=== PATIENT | female | born 1940 | race Caucasian/White ===

== ENCOUNTER → 2017-05-02 | Outpatient (CLI) | payer OTHER ==
--- NOTE | 2017-05-03 13:34 | MAMMOGRAPHY REPORT ---
BILATERAL DIGITAL SCREENING MAMMOGRAM WITH CAD: 05/02/2017 CLINICAL HISTORY: Routine screening. Patient has no complaints. TECHNIQUE: Current study was also evaluated with a Computer Aided Detection (CAD) system. Bilateral CC and MLO views were obtained. COMPARISON: No prior exams were available for comparison. BREAST COMPOSITION: There are scattered areas of fibroglandular density in both breasts. FINDINGS: There is a focal asymmetry in the right upper outer quadrant as well as an associated oval 10 mm mass, for which spot compression tomosynthesis views and possible breast ultrasound are recomm ended for further evaluation. Additionally, there are vague asymmetries within the left lateral yong st, which likely represent normal fibroglandular tissue although tomosynthesis images of the left gayla ast are recommended for further evaluation. The remainder of both breasts demonstrate no suspicious masses, calcifications, or areas of edi architect ural distortion. A few scattered lateral punctate benign-appearing calcifications are noted. IMPRESSION: ACR BI-RADS CATEGORY 0: INCOMPLETE EVALUATION: NEED ADDITIONAL IMAGING EVALUATION Bilateral breast asymmetries, for which additional imaging evaluation is recommended. The patient will be called to schedule an appointment. Approximately 10% of breast cancers are not detected with mammography. A negative mammographic report should not delay biopsy if a clinically suggestive mass is present. Deepika Neff M.D. ah/:05/02/2017 17:01:27 Guard Immigration: Maia BROWN(Flora)([place])([place]), [facility] letter sent: Addl Imaging 0 BI-RADS Code: ACR BI-RADS Category 0: Incomplete Evaluation: Need Additional Imaging Evaluation
== END | disposition home or self-care (01) ==
LOC: C.MAMM 14:23
PROVIDERS: ATTEND Family Medicine
DX: Z12.31 Encounter for screening mammogram for malignant neoplasm of breast (principal); R92.8 Other abnormal and inconclusive findings on diagnostic imaging of breast

== ENCOUNTER → 2017-05-15 | Outpatient (CLI) | payer OTHER ==
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
== END | disposition home or self-care (01) ==
LOC: C.MAMM 10:47
PROVIDERS: ATTEND Family Medicine
DX: N64.89 Other specified disorders of breast (principal); N63 Unspecified lump in breast; N60.01 Solitary cyst of right breast; Z98.890 Other specified postprocedural states

== ENCOUNTER → 2017-05-16 | Outpatient (CLI) | payer OTHER ==
--- NOTE | 2017-05-16 14:29 | Discharge Instructions ---
Discharge Instructions Procedure Procedure Date: May 16, 2017. Reason for visit: RIGHT MASSES x2. Discharge Discharge Date: May 16, 2017. Discharge Diagnosis: status post breast biopsy Instructions Activity Recommendations: Additional Limitations (see below) Return to School/Work: no limitations Recommended Home Diet: No Limitations Provider Instructions: ACTIVITY RECOMMENDATIONS: * No lifting, pushing, pulling or exercising the affected side for three days. RETURN TO SCHOOL/WORK: * You may return to work/school after the procedure, but do not perform any strenuous activities for 24 to 48 hours. MEDICATIONS: * Tylenol (two 325 mg) every four to six hours if needed for mild pain (if not allergic to Tylenol). DIET: * Resume previous diet. SPECIAL CARE INSTRUCTIONS: * Keep biopsy site dry for 24 hours. May shower after 24 hours, but do not soak (bathe) incision. * May remove Tegaderm (plastic patch) tomorrow AFTER showering. * Leave the steri-strips on for one week. Allow the steri-strips to fall off by themselves. If not off after one week, you may remove them. You may place a Bandaid crosswise over the strips, if desired. * Apply ice 10 minutes on and 10 minutes off as needed. * Wear a bra at bedtime to sleep more comfortably for 2-3 days. * Your referring physician should have the results after approximately 5 to 7 business days. * Call for unusual bleeding, fever, drainage, etc or if you have any questions call during normal business hours or after hours call Dr Neff, . FOLLOW UP VISIT: Follow-up with Referring Physician as scheduled. Allergies Coded Allergies: No Known Allergies (Unverified , 02/29/16) Rohini Belcher Recommendations: Call your doctor if: * Temperature above 101 degrees * Pain not relieved by pain medicine ordered * There is increased drainage or redness from any incision * You have any unanswered questions or concerns. Your Doctors Instructions noted above were prepared by provider Deepika Neff. Patient Signature Section: Patient Instructions Signature Page Ellen Lerner Patient (or Guardian) Signature/Date: I have read and understand the instructions given to me by my caregivers. Caregiver/RN/Doctor Signature/Date: The above-named patient and/or guardian has received patient instructions on this date. + Original Patient Signature Page (only) stays with chart. Please make copy for patient.
--- NOTE | 2017-05-16 15:39 | MAMMOGRAPHY REPORT ---
UNILATERAL RIGHT DIGITAL DIAGNOSTIC MAMMOGRAM TOMOSYNTHESIS: 05/16/2017 CLINICAL HISTORY: Status post right breast biopsies. TECHNIQUE: Breast tomosynthesis in addition to standard 2D mammography was performed. Postprocedura l right CC and ML tomosynthesis images including C views were obtained. COMPARISON: Comparison is made to exams dated: 05/16/2017 ultrasound biopsy, 05/15/2017 ultrasound, 05/02 mammogram, and 05/15/2017 mammogram - [facility]. BREAST COMPOSITION: There are scattered areas of fibroglandular density in the right breast. FINDINGS: A new ribbon-shaped biopsy marker clip is seen at the site of the biopsy of the textural d ifference in the right 11:30 breast, correlating with a mammographic asymmetry. A wing-shaped biopsy marker clip is seen at the site of the biopsied mass in the right 12:00 breast. No significant post biopsy hematoma is seen. IMPRESSION: POST PROCEDURE IMAGING FOR MARKER PLACEMENT New biopsy marker clips status post right breast biopsies. Pathology results are pending. Approximately 10% of breast cancers are not detected with mammography. A negative mammographic report should not delay biopsy if a clinically suggestive mass is present. Deepika Neff M.D. /:05/16/2017 14:42:29 Critical Care Transport Nurse: Radha Gregory, [facility] BI-RADS Code: Post Procedure Imaging For Marker Placement
--- NOTE | 2017-05-16 15:39 | MAMMOGRAPHY REPORT ---
THIS REPORT HAS BEEN AMENDED. ULTRASOUND GUIDED BIOPSY RIGHT BREAST: 05/16/2017 CLINICAL HISTORY: Hypoechoic textural difference in the right 11:30 breast on ultrasound, felt to cor relate with a focal asymmetry mammographically. PATIENT CONSENT: The procedure, risks and benefits were discussed with the patient and informed writt en consent was obtained. A timeout was performed immediately prior to the procedure. PROCEDURE DESCRIPTION: With ultrasound guidance, aseptic technique, and lidocaine as the local anesth etic (1% lidocaine to anesthetize the skin and 1% lidocaine with epinephrine to anesthetize the deepe r tissues), the hypoechoic textural difference in the right 11:30 breast (labelled "A") was sampled 3 times with a 14-gauge Achieve biopsy needle. Immediately thereafter, with ultrasound guidance, asep tic technique, and lidocaine as the local anesthetic, a metallic localizer clip was placed at the bio psy site. Direct pressure was applied to the site immediately post procedure and hemostasis was achi eved. Postprocedure unilateral mammograms were performed to confirm placement of the clip in the exp ected location of the breast mass. The patient tolerated the procedure without complication. She wa s given wound care instructions. The specimens were sent to pathology for analysis. COMPARISON: Comparison is made to exams dated: 05/15/2017 ultrasound, 05/15/2017 mammogram, and mammogram - [facility]. IMPRESSION: ULTRASOUND GUIDED BIOPSY Ultrasound-guided biopsy of the textural difference in the right 11:30 breast (labelled "A"), with cl ip placement. The patient will receive pathology results from her referring provider. Deepika Neff M.D. ah/:05/16/2017 14:31:07 Rail Express Clerk: Radha Gregory, [facility] AMENDMENT: 05/22/2017 Deepika Neff M.D. Pathology from right breast biopsies was reviewed on 05/22/2017. Pathology of the right 11:30 breast abnormality yielded fibrocystic changes. Pathology of the right 12:00 breast mass yielded fibroadeno ma. Findings are benign and concordant with the imaging findings. Recommend follow-up diagnostic to mosynthesis mammograms and possible ultrasound of the right breast in 6 months to confirm stability o f the findings.
--- NOTE | 2017-05-16 15:39 | MAMMOGRAPHY REPORT ---
ULTRASOUND GUIDED BIOPSY RIGHT BREAST: 05/16/2017 CLINICAL HISTORY: Right 12:00 breast mass. PATIENT CONSENT: The procedure, risks and benefits were discussed with the patient and informed writt en consent was obtained. A timeout was performed immediately prior to the procedure. PROCEDURE DESCRIPTION: With ultrasound guidance, aseptic technique, and lidocaine as the local anesth etic (1% lidocaine to anesthetize the skin and 1% lidocaine with epinephrine to anesthetize the deepe r tissues), the mass of concern in the right 12:00 breast (labeled "B") was sampled 3 times with a 14 -gauge Achieve biopsy needle. Immediately thereafter, with ultrasound guidance, aseptic technique, a nd lidocaine as the local anesthetic, a wing-shaped metallic localizer clip was placed centrally in t he mass. Direct pressure was applied to the site immediately post procedure and hemostasis was achie lukas. Postprocedure unilateral mammograms were performed to confirm placement of the clip in the expe cted location of the breast mass. The patient tolerated the procedure without complication. She was given wound care instructions. The specimens were sent to pathology for analysis. COMPARISON: Comparison is made to exams dated: 05/16/2017 ultrasound biopsy, 05/15/2017 ultrasound, 2016 mammogram, and 05/02/2017 mammogram - [facility]. IMPRESSION: ULTRASOUND GUIDED BIOPSY Ultrasound guided core needle biopsy of the right 12:00 breast mass (labeled "B"), with clip placemen t. The patient will receive pathology results from her referring provider. Deepika Neff M.D. ah/:05/16/2017 14:32:38 Prefitter: Radha Gregory, [facility]
== END | disposition home or self-care (01) ==
LOC: C.MAMM 13:43
PROVIDERS: ATTEND Family Medicine
DX: N63 Unspecified lump in breast (principal); D24.1 Benign neoplasm of right breast

== ENCOUNTER → 2017-11-14 | Outpatient (CLI) | payer OTHER ==
--- NOTE | 2017-11-14 15:05 | MAMMOGRAPHY REPORT ---
UNILATERAL RIGHT DIGITAL DIAGNOSTIC MAMMOGRAM TOMOSYNTHESIS WITH CAD: 11/14/2017 CLINICAL HISTORY: The patient presents for short interval follow-up after benign biopsies of the righ t breast. Pathology of the right 11:30 breast abnormality yielded fibrocystic changes, while patholog y of the right 12:00 breast mass yielded a fibroadenoma. The patient reports no lumps or other compl aints. TECHNIQUE: Breast tomosynthesis in addition to standard 2D mammography was performed. Current study was also evaluated with a Computer Aided Detection (CAD) system. Right CC and MLO 2D and tomosynthes is images were obtained. COMPARISON: Comparison is made to exams dated: 05/16/2017 ultrasound biopsy, 05/16/2017 mammogram, 017 ultrasound biopsy, 05/15/2017 ultrasound, 05/15/2017 mammogram, and 05/02/2017 mammogram - [facility]. BREAST COMPOSITION: There are scattered areas of fibroglandular density in the right breast. FINDINGS: Two biopsy clips are noted within the right upper outer quadrant and right 12:00 breast at the sites of prior benign right breast biopsies. Focal asymmetry in the right upper outer quadrant i s stable compared to the April 2017 exam; given the benign pathology on biopsy and given the stabili ty, the finding is considered benign. The remainder of the right breast is stable compared to the pr ior exams, without suspicious masses, calcifications, or areas of architectural distortion noted. Ar chitectural distortion in the right 12:00 breast is stable and compatible with postsurgical changes f rom prior benign excisional biopsy. IMPRESSION: ACR BI-RADS CATEGORY 2: BENIGN There is no mammographic evidence of malignancy in the right breast. Return to annual mammogram scree yoli schedule is recommended, due April 2018. The patient has been verbally notified of the results . Approximately 10% of breast cancers are not detected with mammography. A negative mammographic report should not delay biopsy if a clinically suggestive mass is present. Deepika Neff M.D. ah/:11/14/2017 10:58:34 Logistic Specialist: Radha BLANKENSHIP)(M), [facility] letter sent: Normal 1/2 BI-RADS Code: ACR BI-RADS Category 2: Benign
== END | disposition home or self-care (01) ==
LOC: C.MAMM 10:00
PROVIDERS: ATTEND Family Medicine
DX: N60.11 Diffuse cystic mastopathy of right breast (principal); D24.1 Benign neoplasm of right breast

== ENCOUNTER 2024-07-28 13:19 | Inpatient (IN) ==
--- NOTE | 2024-07-28 13:34 | Emergency Department Note ---
Impression & Plan Fracture of left tibial plateau, Fall ED Provider Note CHIEF COMPLAINT: Left knee pain HISTORY OF PRESENTING ILLNESS: This 84-year-old female patient presents to the emergency department with her for evaluation of left knee injury. The patient states that she slipped and fell while doing housework approximately 1 hour ago injuring the left knee. The patient states that she was on a step ladder cleaning the cabinets. When she went to step off the counter onto the step ladder again her left knee twisted and gave out on her. She then landed on her left side onto the floor. She states that she fell about 3 feet, but does not feel that she hit hard. She did not hit her head. No LOC. Denies neck or back pain. Denies chest pain, SOB, or rib pain. Denies abdominal pain, nausea, or vomiting. Denies pain of her arms or right leg. Only having pain to the left knee. She is unable to bear any weight on the left knee. She does not think that her knee went backwards, just twisted to the side. She is not on any blood thinners. She denies any pain or injury to any other areas. She rates her discomfort as 1/10. She has not taken anything for the symptoms yet. No previous injuries or surgeries to this knee. REVIEW OF SYSTEMS: See HPI for pertinent positives and pertinent negatives. ALLERGIES: NKDA MEDICATIONS: HCTZ and Lisinopril PAST MEDICAL HISTORY: HTN PHYSICAL EXAM: VITALS: Vitals are noted on the nurse's note and reviewed by myself. GENERAL: No acute distress, non-diaphoretic. SKIN: The skin was without obvious lacerations or abrasions. No obvious areas of bruising other than the anterior aspect of the left knee. Capillary reflex less than 2 seconds. HEAD: Normocephalic. No scalp tenderness or step-offs felt. EARS: Bilateral external auditory canals clear without tragus tenderness. Bilateral tympanic membranes pearly jackson without erythema or effusion. No mastoid tenderness bilaterally. No hemotympanum. No bunch sign. EYES: Pupils equal round and reactive to light and accommodation. Conjunctivae without injection, sclerae without icterus. Extraocular movements intact. No nystagmus. NOSE: Patent without discharge. No sinus tenderness. No septal hematoma or bleeding. FACE: No facial bone tenderness. Full range of motion of the jaw without tenderness. MOUTH: Mucous membranes moist. Pharynx without erythema or exudate. Uvula midline. Airway patent. Tongue does not deviate. NECK: Supple without nuchal rigidity. Cervical spine is nontender. Full range of motion of the neck without tenderness. HEART: Regular rate and rhythm without murmurs gallops or rubs. LUNGS: Clear to auscultation bilaterally without wheezes, rales or rhonchi. No retractions or accessory muscle use. CHEST: No chest wall tenderness. ABDOMEN: Positive bowel sounds x 4. Normal tympanic percussion. Soft, nontender, without masses or organomegaly. No guarding or rebound tenderness. MUSCULOSKELETAL: No tenderness of the thoracic or lumbar spine. No tenderness with pelvic rocking. The patient is mildly tender to palpation over the anterior aspect of the left knee and mildly tender in the popliteal fossa of the left knee. No tenderness to palpation of the left femur, left hip, left tib- fib, left ankle, or left foot. The patient still has full range of motion of the left knee with minimal tenderness. Full range of motion of the left hip and ankle without pain. Full range of motion without tenderness to palpation in all remaining extremities. Peripheral pulses 2+ and equal in all extremities. NEURO: Patient was alert and oriented to person place and time. Normal mental status exam. Normal sensation to light and sharp touch. Cerebellar function intact. No focal neurological deficits. DIFFERENTIAL DIAGNOSIS: Differential diagnosis includes fracture, subluxation, dislocation, contusion, ligamentous injury, neurovascular, compartment syndrome, rhabdomyolysis, as well as other pathologies. ED COURSE AND MEDICAL DECISION MAKING: HISTORY FROM INDEPENDENT HISTORIAN: Additional history was obtained from the patient's INTERPRETATION OF IMAGING: Imaging studies were interpreted by myself and read by radiology as per the imaging section of this note. X-rays of the left knee showed moderate soft tissue swelling most pronounced anteriorly. There is a small to moderate joint effusion. An acute mildly depressed fracture involves the posterior aspect of the lateral tibial plateau with fracture extension into the proximal metadiaphysis laterally. CT scan of the left knee without contrast shows confirmation of the acute proximal tibial fracture with comminution and depression of the lateral tibial plateau component of the fracture. There is fracture extension involving both the medial and lateral tibial spines and lateral aspect of the proximal tibial metadiaphysis. Small to moderate joint effusion/hemarthrosis. CHRONIC MEDICAL/SOCIAL CONDITIONS AFFECTING CARE: Advanced age, inability to be nonweightbearing CONSULTATIONS: Dr. Hurd of orthopedics. Dr. Paulino of orthopedics. On- call hospitalist SPLINTING: The patient was placed in a knee immobilizer under my direction. Neurovascular status was rechecked and intact. MDM SUMMARY: I examined the patient. The patient was cleaning cabinets 1 hour prior to arrival. When she went to step from the counter onto the stepladder, her left knee twisted and gave out on her and she fell onto her left side onto the floor. The patient did not hit her head and she is not on any blood thinners. She denies any injury or pain other than the left knee. The patient has no tenderness to palpation on exam or obvious evidence for trauma other than the left knee. The patient declined any medication for pain while in the emergency department despite multiple inquiries. X-rays of the left knee showed moderate soft tissue swelling most pronounced anteriorly. There is a small to moderate joint effusion. An acute mildly depressed fracture involves the posterior aspect of the lateral tibial plateau with fracture extension into the proximal metadiaphysis laterally. The patient was placed in a knee immobilizer and given an ambulatory trial with a walker. However, she is unable to be nonweightbearing with a knee immobilizer and the walker and needs to have at least toe-touch pressure for ambulation. I spoke with Dr. Hurd of orthopedics who reviewed the patient's x-ray images. He stated that he did not feel comfortable managing the patient's tibial plateau fracture locally. He felt the patient required evaluation by a trauma surgeon for further treatment. He stated that the trauma surgeon would most likely recommend transferring the patient due to her age, BMI, and inability to be nonweightbearing. He recommended a CT scan of the knee prior to transfer. CT scan of the left knee without contrast shows confirmation of the acute proximal tibial fracture with comminution and depression of the lateral tibial plateau component of the fracture. There is fracture extension involving both the medial and lateral tibial spines and lateral aspect of the proximal tibial metadiaphysis. Small to moderate joint effusion/hemarthrosis. I had a meaningful discussion about this patient with Dr. Weiss who agrees with my assessment and the treatment plan. While the patient was waiting for the CT scan the case was discussed further with ER providers and it was felt that Dr. Paulino of orthopedics may be able to manage this patient's tibial plateau fracture locally. I reached out to Dr. Paulino of orthopedics via [place] text. He was able to review the x-ray images as well as the CT scan images that had been completed. Dr. Paulino then presented to the emergency department and evaluated the patient. After discussion with Dr. Paulino, the patient was still undecided whether she wanted to undergo surgery or not. Dr. Paulino recommended the patient be admitted by medicine for ambulatory dysfunction so the patient can be nonweightbearing until it can be determined whether the patient would undergo surgical intervention. Please refer to his dictation for further details. I spoke with the on-call hospitalist who agreed to admit the patient for further management. Please refer to their dictation for further details. The patient's care was transferred in stable condition. DIAGNOSIS: Left tibial plateau fracture Fall Past Med/Surg History Problem List (Updated 07/28/24 @ 22:32 by Elham Graham PA-C) Fall (Acute) Hyponatremia Fracture of left tibial plateau (Acute) Hypertension Left tibial fracture Claudication of both lower extremities Screening for lipid disorders Benign hypertension (Acute) Seborrheic keratosis, inflamed Umbilical hernia (Acute) Cutaneous fungal infection (Acute) Knee pain (Acute) Surgical History Hx of breast surgery Hx of hernia repair Family History Mother Breast cancer Grandmother (Maternal) Asthma Father Coronary heart disease Denies family history of Ovarian cancer Prostate cancer Myocardial infarction Colorectal cancer Social History Smoking Status: Never smoker Tobacco Type: Declines Second Hand Exposure: No; Do You Dip or Chew Tobacco: No; Tobacco Cessation Education Requested by Patient: No Hx Alcohol Use: Yes Alcohol type: wine Alcohol Intake Frequency: Monthly or Less Hx Substance Use: No Preferred Language: Bhutanese Communication Ability: Effective Visual Impairment: No Limitations Hearing Ability: Normal Equipment Installation Professional Required: No Beliefs That Will Affect Care: None marital status: Current Living Situation: Spouse Current Living Situation Comment: Two story home current occupational status: retired How many Children do You have: 1 Other Information That Helps Us Care for You: No Feels Safe at Home: Yes Childhood Exposure to Second-Hand Smoke: Yes Diet: regular caffeine: Yes during the past year weight has: remained stable Dental Care, Regularly: Yes Physical Activity Frequency: Does not Exercise Seatbelt Use: always Sunscreen Use: No Do you think of yourself as: straight/heterosexual Gender Identity: Female Assistive Devices: None Allergies Allergies Allergy/AdvReac Type Severity Reaction Status Date / Time No Known Drug Allergies Allergy Verified 03/03/24 08:54 Home Meds Home Medications Medication Instructions Recorded Confirmed hydrochlorothiazide 25 mg tablet 25 mg PO QAM 07/28/24 07/28/24 Previous Rx's Medication Instructions Recorded lisinopril 40 mg tablet 40 mg PO DAILY #90 tabs 11/29/23 Results & Data (ED) Vital Signs Vital Signs - 24 hr 07/28/24 13:28 Temperature 36.8 C Temperature Source Temporal Artery Scan Pulse Rate 78 Respiratory Rate 17 Respiratory Effort / Characteristics Non-Labored Spontaneous Respiratory Depth Normal Respiratory Pattern Regular Blood Pressure 138/83 Blood Pressure Mean 101 Pulse Oximetry 96 Oxygen Delivery Method Room Air Sepsis Recent Fever Within 48 Hours No Sepsis New/Unexplained Change in Mental Status N/A Sepsis Action Taken by Nursing No Action Required Laboratory Data 07/28/24 17:30 07/28/24 17:30 Administered Medications Calcium/Vitamin D (Calcium 600mg + Vit D 400 Iu Tab) 1 tab PO [facility] Stop: 08/27/24 20:59 Last Admin: 07/28/24 21:34 Dose: 1 tab Documented By: KENNEDI Sodium Chloride (Nss) 500 mls @ 125 mls/hr IV .Q4H ONE Stop: 07/28/24 22:32 Last Admin: 07/28/24 21:31 Dose: 125 mls/hr Documented By: KENNEDI Magnesium Oxide (Magnesium Oxide 400 Mg Tab) 400 mg PO HS CAN Stop: 08/27/24 20:59 Last Admin: 07/28/24 21:34 Dose: 400 mg Documented By: KENNEDI Imaging Data Radiologist's Impression: Knee X-Ray 07/28/24 13:43 XR knee LT 3V HISTORY: 84 years-old Female Trauma acute left knee pain status post fall COMPARISON: 12/22/2014 TECHNIQUE: 3 views of the left knee FINDINGS: Moderate soft tissue swelling of the knee is most pronounced anteriorly. Small to moderate joint effusion. Acute mildly depressed fracture involves the posterior aspect of the lateral tibial plateau with fracture extension into the proximal metadiaphysis laterally. Superficial venous varicosities. IMPRESSION: Acute proximal tibial fracture as above with soft tissue swelling and joint effusion. ACT 112: Negative or not required by law. The above report was generated using voice recognition software. It may contain grammatical, syntax or spelling errors. Electronically signed by: Derek Ham M.D. 07/28/2024 2:[address] 07/28/24 14:49 CT knee LT wo con HISTORY: 84 years-old Female With 3D recons - tibial plateau fracture acute lateral tibial plateau fracture COMPARISON: Knee radiographs of same day TECHNIQUE: Multiple axial CT images of the left knee were obtained without IV contrast. A dose lowering technique was used consistent with the principals of [place]. FINDINGS: Confirmation of the acute proximal tibial fracture with comminuted component involving the lateral tibial plateau. Confirmation of the articular depression which measures approximately [address] There is fracture extension into the medial and lateral tibial spines. The articular surface of the medial tibial plateau is intact. There is vertical fracture extension into the proximal tibial metadiaphysis laterally, approximately 7 cm distal to the articular surface. There is no significant displacement or large intra-articular loose body. Mild tricompartmental osteoarthritis. Onldx-qg-alrwizgt joint effusion/hemarthrosis. Anterior superficial venous varicosities. Arterial calcifications. Tendons, ligaments and menisci are not well evaluated by CT technique. IMPRESSION: 1. Confirmation of the acute proximal tibial fracture with comminution and depression of the lateral tibial plateau component of the fracture. 2. Fracture extension involving both the medial and lateral tibial spines and lateral aspect of the proximal tibial metadiaphysis. 3. Trnzr-be-zjmosrem joint effusion/hemarthrosis. ACT 112: Negative or not required by law. The above report was generated using voice recognition software. It may contain grammatical, syntax or spelling errors. Electronically signed by: Derek Ham M.D. 07/28/2024 3:47 PM Discharge Plan Visit Data Chief Complaint: Knee Injury/Pain Stated Complaint: FALL, LT KNEE ED Provider: Nikita Weiss ED Midlevel Provider: Elham Graham Discharge Problem: Fracture of left tibial plateau, Fall Patient Disposition: Admitted As Inpatient Condition: Good Discharge Instructions Interventions: ED Discharge Assessment Last Done: 07/28/24 19:49 Discharge Problem: Fracture of left tibial plateau Qualifiers: Encounter type: initial encounter Fracture type: closed Qualified Code(s): S 82.142A - Displaced bicondylar fracture of left tibia, initial encounter for closed fracture Fall Qualifiers: Encounter type: initial encounter Qualified Code(s): W19.XXXA - Unspecified fall, initial encounter
--- NOTE | 2024-07-28 14:07 | XRay Report ---
XR knee LT 3V HISTORY: 84 years-old Female Trauma acute left knee pain status post fall COMPARISON: 12/22/2014 TECHNIQUE: 3 views of the left knee FINDINGS: Moderate soft tissue swelling of the knee is most pronounced anteriorly. Small to moderate joint effu jose. Acute mildly depressed fracture involves the posterior aspect of the lateral tibial plateau wit h fracture extension into the proximal metadiaphysis laterally. Superficial venous varicosities. IMPRESSION: Acute proximal tibial fracture as above with soft tissue swelling and joint effusion. ACT 112: Negative or not required by law. The above report was generated using voice recognition software. It may contain grammatical, syntax o r spelling errors. Electronically signed by: Derek Ham M.D. 07/28/2024 2:06 PM
--- NOTE | 2024-07-28 15:49 | CT Scan Report ---
CT knee LT wo con HISTORY: 84 years-old Female With 3D recons - tibial plateau fracture acute lateral tibial plateau f racture COMPARISON: Knee radiographs of same day TECHNIQUE: Multiple axial CT images of the left knee were obtained without IV contrast. A dose loweri ng technique was used consistent with the principals of [place]. FINDINGS: Confirmation of the acute proximal tibial fracture with comminuted component involving the lateral ti bial plateau. Confirmation of the articular depression which measures approximately [address] There is fracture extension into the medial and lateral tibial spines. The articular surface of the medial tibial plateau is intact. There is vertical fracture extension into the proximal tibial metadiaphysi s laterally, approximately 7 cm distal to the articular surface. There is no significant displacement or large intra-articular loose body. Mild tricompartmental osteoarthritis. Asurg-qi-ngnfobwj joint effusion/hemarthrosis. Anterior superficial venous varicosities. Arterial monse cifications. Tendons, ligaments and menisci are not well evaluated by CT technique. IMPRESSION: 1. Confirmation of the acute proximal tibial fracture with comminution and depression of the lateral tibial plateau component of the fracture. 2. Fracture extension involving both the medial and lateral tibial spines and lateral aspect of the p roximal tibial metadiaphysis. 3. Ojsqq-il-cderqchy joint effusion/hemarthrosis. ACT 112: Negative or not required by law. The above report was generated using voice recognition software. It may contain grammatical, syntax o r spelling errors. Electronically signed by: Derek Ham M.D. 07/28/2024 3:47 PM
--- NOTE | 2024-07-28 17:25 | History & Physical Report ---
Date of Service July 28, 2024 Assessment & Plan (1) Left tibial fracture: Plan: Patient with mechanical fall 07/28 left knee XR/CT showing acute proximal tibial fracture with comminution and depression of the lateral tibial plateau, fracture extension involving both medial and lateral tibial spines and lateral aspect of proximal tibial metadiaphysis, small-mod joint effusions/hemarthrosis - leukocytosis, WBC 12.34, likely secondary to inflammation from fall; trend CBC with AM labs tomorrow - Orthopedics, Dr. Paulino to evaluate pt in AM - possible surgical management on - preop labs and EKG ordered - Nonweightbearing to left leg - Knee immobilizer - pain control with Tylenol and ice prn (2) Hyponatremia: Plan: Mild, appears chronic - 133 on admission - with slightly elevated Bun/Cr ratio suspect due to dehydration - 500 mL NSS gentle resuscitation on admission - repeat BMP with AM labs (3) Hypertension: Plan: stable - Continue home HCTZ and lisinopril Plan Chronic stable diagnoses: continue home calcium and magnesium supplements VTE ppx: SCDs - defer pharmacologic VTE PPx given small/moderate hemarthrosis of left knee Diet: regular Code status: Full code Dispo: med surg Admission and Anticipated Discharge Date Admission Date: 07/28/24 History of Present Illness Chief Complaint: knee pain Primary Care Provider: Celina Batres MD Patient is an 84-year-old female with past medical history of hypertension. She presents today after twisting on her stool, falling, and hurting her left knee. She was cleaning out her cabinets, on a step stool, and her knee twisted and gave out. She denies dizziness, chest pain, dyspnea, prior to falling. Her knee pain is currently well-controlled. X-ray/ CT on admission showed acute proximal tibial fracture with communication and decompression of lateral tibial plateau. ER doctor stated that Dr. Paulino will perform surgery if patient wishes. She is to be nonweightbearing to the left leg and in a knee immobilizer. Patient denies dizziness, lightheadedness, dyspnea, chest pain, edema, numbness, tingling. She took all of her home medications this morning, she also takes a calcium and magnesium supplement at night. She wishes to be full code at this time. Allergies Allergy/AdvReac Type Severity Reaction Status Date / Time No Known Drug Allergies Allergy Verified 03/03/24 08:54 Home Medications Medication Instructions Recorded Confirmed Type lisinopril 40 mg tablet 40 mg PO DAILY #90 tabs 11/29/23 07/28/24 Rx hydrochlorothiazide 25 mg tablet 25 mg PO QAM 07/28/24 07/28/24 History Past Med/Surg History Problem List (Updated 07/29/24 @ 15:01 by Jenaro Reyes LPN) Fall (Acute) Hyponatremia Fracture of left tibial plateau (Acute 07/28/24) acute proximal left tibial fracture with comminution and depression of the lateral tibial plateau component of the fracture. Per the ED report the patient slipped and fell while doing house work Hypertension Left tibial fracture (07/28/24) acute proximal left tibial fracture with comminution and depression of the lateral tibial plateau component of the fracture. Per the ED report the patient slipped and fell while doing housework. Claudication of both lower extremities Screening for lipid disorders Benign hypertension (Acute) Seborrheic keratosis, inflamed Umbilical hernia (Acute) Cutaneous fungal infection (Acute) Knee pain (Acute) Surgical History Hx of breast surgery Hx of hernia repair Family History Mother Breast cancer Grandmother (Maternal) Asthma Father Coronary heart disease Denies family history of Ovarian cancer Prostate cancer Myocardial infarction Colorectal cancer Social History Smoking Status: Never smoker Tobacco Type: Declines Second Hand Exposure: No; Do You Dip or Chew Tobacco: No; Tobacco Cessation Education Requested by Patient: No Hx Alcohol Use: Yes Alcohol type: wine Alcohol Intake Frequency: Monthly or Less Hx Substance Use: No Preferred Language: Faroese Communication Ability: Effective Visual Impairment: No Limitations Hearing Ability: Normal Hand Alterations Seamstress Required: No Beliefs That Will Affect Care: None marital status: Current Living Situation: Spouse Current Living Situation Comment: Two story home current occupational status: retired How many Children do You have: 1 Other Information That Helps Us Care for You: No Feels Safe at Home: Yes Childhood Exposure to Second-Hand Smoke: Yes Diet: regular caffeine: Yes during the past year weight has: remained stable Dental Care, Regularly: Yes Physical Activity Frequency: Does not Exercise Seatbelt Use: always Sunscreen Use: No Do you think of yourself as: straight/heterosexual Gender Identity: Female Assistive Devices: None Review of Systems Review of Systems: See HPI Physical Exam Physical Exam: The patient is awake, alert and oriented 3, well developed and well nourished, normocephalic and atraumatic, in no acute distress. Non-toxic appearing. HEENT- EOMI, mucous membranes moist. Hearing grossly intact. Heart-normal S1 and S2. No murmurs, rubs or gallops. Lungs-clear bilaterally, no respiratory distress, no accessory muscle use. Abdomen-normal bowel sounds and soft. No ascites noted. Non-tender. Extremities- no clubbing, cyanosis, or edema. Knee immobilizer to left knee. Rheumatologic-normal range of motion. Psychiatric-normal affect. Results & Data Results & Data Vital Signs (Past 12 Hours) Vital Signs Temp Pulse Resp BP Pulse Ox O2 Del Method 07/28/24 13:28 36.8 C 78 17 138/83 96 Room Air Code Status & VTE Plan Code Status Full code VTE Prophylaxis Plan VTE Prophylaxis will be ordered: Yes Supervising Physician Co-Signing Physician Notes I personally saw and examined the patient. I independently reviewed the labs, EKG, imaging, problem list, medication list, past medical history and family history. I verified all ramirez points and agree with Amanda Kaplan PA-C with the following exceptions and/or additions: 84 year old female presents to the ER with tibial plateau fracture following twisting fall off stool. No concerning features prior to fall and felt otherwise well O/E HS RRR, no murmurs, Chest CTAB, Abdo SNT, knee in brace, NV intact distally A/P Tibial plateau fracture - management per orthopedics, VTE Prophylaxis per orthopedics, deferred on day of admission Otherwise as above PG Care Time/CCT Total # of Minutes Spent Total Time Spent with Patient: Total time spent is greater than 50% in coordination of care (as documented) at patient's floor/unit and/or counseling patient: Coding Level of Care Code 63494 INT INP/OBS CARE MIN Diagnoses Left tibial fracture S82.202A Hyponatremia E87.1 Hypertension I10
[2024-07-28 17:46] LABS: Basophils # (auto) 0.05 K/uL (0.00-0.20); Basophils % (auto) 0.4 %; Eosinophils # (auto) 0.01 K/uL (0.00-0.50); Eosinophils % (auto) 0.1 %; Hematocrit (blood only) 38.1 % (37.0-47.0); Immature Granulocytes # (auto) 0.05 K/uL (0.01-0.20); Immature Granulocytes % (auto) 0.4 %; Lymphocytes # (auto) 1.05 K/uL (1.20-3.40); Lymphocytes % (auto) 8.5 %; Mean Corpuscular Hemoglobin 30.1 pg (25.0-34.0); Mean Corpuscular Hgb Conc 34.1 g/dL (32.0-36.0); Mean Corpuscular Volume 88.2 fL (80.0-100.0); Mean Platelet Volume 9.5 fL (9.4-12.4); Monocytes # (auto) 0.46 K/uL (0.11-0.59); Monocytes % (auto) 3.7 %; Neutrophils # (auto) 10.72 K/uL (1.40-6.50); Neutrophils % (auto) 86.9 %; Platelet Count 284 K/uL (130-400); RDW Coefficient of Variation 13.1 % (11.5-14.5); RDW Standard Deviation 42.6 fL (36.4-46.3); Red Blood Count 4.32 M/uL (4.20-5.40); White Blood Count 12.34 K/ul (4.8-10.8)
[2024-07-28 18:03] LABS: Anion Gap 9 (3-11); BUN Creatinine Ratio 21.8 (10-20); Blood Urea Nitrogen 22 mg/dl (6-23); Calcium 9.6 mg/dl (8.6-10.3); Carbon Dioxide 27 mmol/L (21-32); Chloride 97 mmol/L (98-107); Glucose 120 mg/dl (70-99(Fasting)); Potassium 3.7 mmol/L (3.5-5.1); Sodium 133 mmol/L (136-145)
--- NOTE | 2024-07-28 18:14 | Orthopedic Consultation ---
Date of Consultation July 28, 2024 Assessment & Plan (1) Benign hypertension: (2) Fracture of left tibial plateau: Plan Ellen is a pleasant 84-year-old female who prior to a fall today was a community ambulator without assistive devices. She fell and sustained a lateral tibial plateau fracture that is a Schatzker 2 split,depressed variant. I had a long discussion with the patient, her , and her son about the nature of this injury. We discussed in detail the pathoanatomy, pathophysiology, and treatment options. I discussed with them both operative and nonoperative care. I believe that based on the patient's physical exam demonstrating instability with valgus stress as well as the depressed aspect of the posterior portion of the joint, her fracture meets surgical indications, however that said, I do think nonoperative care is reasonable for her given her age, the fact that the depression is so posterior (meaning less tibiofemoral contact while standing with the exception of deep flexion), and the incomplete nature of the fracture as it extends into the metaphysis. I did discuss with the patient that if she were to elect to pursue operative management, I would allow her to begin partial weightbearing sooner (2 weeks versus 6 weeks with nonoperative care), and would allow greater range of motion at an earlier timeframe as opposed to nonoperative care (2 weeks versus 6 weeks). I did explain the risks of surgery to the patient and her family i ncluding but not limited to loss of life/limb, DVT, incomplete relief of pain, posttraumatic osteoarthrosis, hardware irritation, nonunion, malunion, hardware failure, need for additional surgery, iatrogenic injury to bone/nerve/tendon/vessel. I also explained to the patient the risks of nonoperative care to include but not limited to fracture displacement, nonunion, malunion, earlier posttraumatic osteoarthrosis, valgus knee deformity. I explained benefits of both procedures in great detail, as well. The benefits of operative management would include earlier partial weightbearing, early range of motion, more reproducible alignment of the joint surface and joint stability. I also explained benefits of nonoperative management which include lower risk of infection. At this point, the patient like to weigh her decisions and we will discuss in greater detail with the entire family tomorrow. If she were to elect for operative management, this would take place on , 07/30/2024. For the time being, she should remain in her knee immobilizer and maintain nonweightbearing on the left lower extremity. She will be admitted to the medical team for ambulatory dysfunction. History of Present Illness Reason for Consultation: left knee pain Requesting Physician: Elham Graham Attending Physician: Dr Ordoñez History of Present Illness Ellen is an 84-year-old female who prior to the fall today was a community ambulator without assistive devices. She presents to Emergency Department after falling off a stepladder this afternoon. She states she fell and twisted her left knee. She never had trouble with his left knee before. She has pain only in the left knee and no additional areas of discomfort. She is past medical history sniffing for hypertension, otherwise no significant past medical history. She presents today with her . Her son was available to discuss her care on the phone. Allergies Allergy/AdvReac Type Severity Reaction Status Date / Time No Known Drug Allergies Allergy Verified 03/03/24 08:54 Home Medications Medication Instructions Recorded Confirmed Type lisinopril 40 mg tablet 40 mg PO DAILY #90 tabs 11/29/23 07/28/24 Rx hydrochlorothiazide 25 mg tablet 25 mg PO QAM 07/28/24 07/28/24 History Patient History Surgical History Hx of breast surgery Hx of hernia repair Family History Mother Breast cancer Grandmother (Maternal) Asthma Father Coronary heart disease Denies family history of Ovarian cancer Prostate cancer Myocardial infarction Colorectal cancer Social History Smoking Status: Never smoker Second Hand Exposure: No; Do You Dip or Chew Tobacco: No; Hx Alcohol Use: Yes Alcohol type: wine Alcohol Intake Frequency: Monthly or Less Hx Substance Use: No Preferred Language: Turkish Communication Ability: Effective Visual Impairment: No Limitations Hearing Ability: Normal Ironmolder Required: No Beliefs That Will Affect Care: None marital status: Current Living Situation: Spouse current occupational status: retired How many Children do You have: 1 Feels Safe at Home: Yes Childhood Exposure to Second-Hand Smoke: Yes Diet: regular caffeine: Yes during the past year weight has: remained stable Dental Care, Regularly: Yes Physical Activity Frequency: Does not Exercise Seatbelt Use: always Sunscreen Use: No Do you think of yourself as: straight/heterosexual Gender Identity: Female Assistive Devices: None Review of Systems Review of Systems: Negative unless otherwise stated above Physical Exam Physical Exam: On physical examination of the patient's left knee, she has tenderness palpation at the lateral joint line. She demonstrates an intact extensor mechanism. There are no open wounds appreciated. Her extremity is warm and well-perfused. on varus/ valgus stress testing, more instability is noted with valgus stress and mild pain is felt as compared to the contralateral side. Results & Data Vital Signs (Past 12 Hours) Vital Signs Temp Pulse Pulse Resp BP BP Pulse Ox 07/28/24 17:35 67 18 158/72 H 96 07/28/24 13:28 36.8 C 78 17 138/83 96 O2 Del Method 07/28/24 17:35 Room Air 07/28/24 13:28 Room Air Diagnostic Findings X-ray and CT scan of the left knee was personally interpreted and reviewed. These demonstrate an acute, displaced fracture of the lateral tibial plateau with a split and depressed portion. The depressed portion of the joint is noted to be very posterior on the CT scan. There does not appear to be an anterior extension of the metaphyseal fracture line.
[2024-07-28 18:28] LABS: Partial Thromboplastin Time 26 Seconds (21-31); Prothrombin Time 10.5 Seconds (9.0-12.0)
[2024-07-28] MEDS ORDERED: ACETAMINOPHEN 325 MG TAB PO PRN (20:05)
[2024-07-28] MEDS ORDERED: DOCUSATE SODIUM 100 MG CAP PO PRN (20:05)
[2024-07-28] MEDS: SODIUM CHLORIDE 0.9% 500 ML IV ONE (21:31)
[2024-07-28] MEDS: CALCIUM 600MG + VIT D 400 IU TAB PO SCH (21:34)
[2024-07-28] MEDS: MAGNESIUM OXIDE 400 MG TAB PO SCH (21:34)
[2024-07-29 06:40] LABS: Hematocrit (blood only) 34.6 % (37.0-47.0); Hemoglobin 11.8 g/dl (12.0-16.0); Mean Corpuscular Hemoglobin 29.9 pg (25.0-34.0); Mean Corpuscular Hgb Conc 34.1 g/dL (32.0-36.0); Mean Corpuscular Volume 87.6 fL (80.0-100.0); Platelet Count 270 K/uL (130-400); RDW Coefficient of Variation 12.8 % (11.5-14.5); RDW Standard Deviation 41.1 fL (36.4-46.3); Red Blood Count 3.95 M/uL (4.20-5.40); White Blood Count 8.02 K/ul (4.8-10.8)
[2024-07-29 07:10] LABS: BUN Creatinine Ratio 18.8 (10-20); Calcium 9.6 mg/dl (8.6-10.3); Creatinine Clr Calc Pharmacy 49.4 ml/min; Potassium 3.7 mmol/L (3.5-5.1)
[2024-07-29] MEDS: hydroCHLOROthiazide 25 MG TAB PO SCH (08:14)
[2024-07-29] MEDS: lisinopril 40 MG TAB PO SCH (08:14)
--- NOTE | 2024-07-29 13:25 | Hospitalist Progress Note ---
Date of Service July 29, 2024 Assessment & Plan (1) Left tibial fracture: Plan: Patient with mechanical fall 07/28 while on stool left knee XR/CT: acute proximal tibial fracture with comminution and depression of the lateral tibial plateau, fracture extension involving both medial and lateral tibial spines and lateral aspect of proximal tibial metadiaphysis, small-mod joint effusions/hemarthrosis - leukocytosis resolved w/o intervention - likely secondary to inflammation - Orthopedics consuted, Dr. Paulino - offered operative vs non-operative management - pt still discussing with family - remain nonweight bearing with immobilzer in place pt medically optimized for surgery, should she choose that route. (2) Hyponatremia: Plan: Mild, appears chronic. 133 on admission - with slightly elevated Bun/Cr ratio suspect due to dehydration --> given 500cc fluids - Na improved to 134 (3) Hypertension: Plan: stable - Continue home HCTZ and lisinopril - will plan to hold if going to OR Plan Chronic stable diagnoses: continue home calcium and magnesium supplements VTE ppx: SCDs - defer pharmacologic VTE PPx with possible OR Dispo: continued inpatient stay awaiting to determine if plan is for OR Family updated at bedside 07/29 Admission and Anticipated Discharge Date Admission Date: July 28, 2024 Supervising Physician Co-Signing Physician Notes Attending Attestation - Chart reviewed, care plan d/w ELIZABETH Booker. I agree w/ the ramirez components of her documentation. Appreciate orthopedic assistance for her L tibial fracture. Uncertain if patient will pursue operative vs non-op Rx. Check a 25-OH Vit D level in the am. Nain Perales MD Subjective patient seen lying in bed. No family at bedside. States her pain is well-controlled. States she has not decided with her family if she would like to have surgery yet, her son plans to visit this afternoon. Patient states she just wants to get better Review of Systems Review of Systems: All systems reviewed & are unremarkable except as noted in Subjective Physical Exam Physical Exam: General: NAD, VS as above Resp: normal respiratory effort, lungs clear to auscultation CV: RRR, no murmur, Abd: normal bowel sounds, soft,non tender, Extremities: left knee in immobilizer. Able to wiggle toes distally. No swelling on the right side. Neuro: A&O x3, Results & Data Results & Data Vital Signs (Past 12 Hours) Vital Signs Temp Pulse Resp BP Pulse Ox O2 Del Method 07/29/24 08:10 63 18 137/76 96 Room Air 07/29/24 07:12 98.1 F 65 16 159/78 H 95 Room Air Laboratory Results CBC and chemistry reviewed Diagnostic Findings x-ray and CT of knee reviewed PG Care Time/CCT Total # of Minutes Spent Total Time Spent with Patient: Total time spent is greater than 50% in coordination of care (as documented) at patient's floor/unit and/or counseling patient: Coding Level of Care Code 38389 SUB INP/OBS CARE 235MIN Diagnoses Left tibial fracture S82.202A Hyponatremia E87.1 Hypertension I10
--- NOTE | 2024-07-29 20:18 | Orthopedic Progress Note ---
Date of Service July 29, 2024 Assessment & Plan (1) Benign hypertension: (2) Fracture of left tibial plateau: Plan Ellen is a pleasant 84-year-old female who prior to a fall yesterday was a community ambulator without assistive devices. She fell as she was attempting to descend a step ladder and sustained a lateral tibial plateau fracture that is a Schatzker 2 split,depressed variant. I had a long discussion with the patient, her , and her son about the nature of this injury. We discussed in detail the pathoanatomy, pathophysiology, and treatment options. I discussed with them both operative and nonoperative care. I believe that based on the patient's physical exam demonstrating some increased laxity with valgus stress as well as the depressed aspect of the posterior portion of the joint, her fracture meets surgical indications, however that said, I do think nonoperative care is reasonable for her given her age, the fact that the depression is so posterior (meaning less tibiofemoral contact while standing with the exception of deep flexion), and the incomplete nature of the fracture as it extends into the metaphysis. I did discuss with the patient that if she were to elect to pursue operative management, I would allow her to begin partial weightbearing sooner (2 weeks versus 6-8 weeks with nonoperative care), and would allow greater range of motion at an earlier timeframe as opposed to nonoperative care. I did explain the risks of surgery to the patient and her family including but not limited to loss of life/limb, DVT, incomplete relief of pain, posttraumatic osteoarthrosis, hardware irritation, nonunion, malunion, hardware failure, need for additional surgery, iatrogenic injury to bone/nerve/tendon/vessel. I also explained to the patient the risks of nonoperative care to include but not limited to fracture displacement, nonunion, malunion, earlier posttraumatic osteoarthrosis, valgus knee deformity. I explained benefits of both procedures in great detail, as well. The benefits of operative management would include earlier partial weightbearing, early range of motion, more reproducible alignment of the joint surface and joint stability. I also explained benefits of nonoperative management which include lower risk of infection. After long discussion of all the above with the patient, her and her son, as well as a discussion with an outside orthoapedic surgeon, Dr Ellis in [place] - the family has elected to pursue nonoperative management. they understand that this will require the patient to maintain nonweightbearing for the next 6-8 weeks. They understand the possibility of future displacement of the fracture and resultant knee valgus deformity. they understand that she may require total knee arthroplasty in the future. Considering she is going to have a significant time of nonweightearing, i do think that she should have DVT ppx - will defer to medicine with this regard. We will change her knee immobilizer for a long leg hinged knee brace - orthotics order placed. This will be locked in extension. She is to be nonweightbearing and will need PT evaluation to determine if SNF vs AIRF is most reasonable for her. Close radiographic follow up of the fracture will be required. I will see her back early the 1st week of August for new XRs to ensure no displacement. If early discplacement of the fracture is noted, I may recommend operative management more strongly. I will continue to follow along. Admission and Anticipated Discharge Date Admission Date: July 28, 2024 Subjective Patient notes that her pain is controlled. He states that she is leaning towards pursuing nonoperative management. No acute events overnight Review of Systems Review of Systems: negative unless otherwise stated above Physical Exam Physical Exam: Tenderness palpation of the lateral joint line. Stable to varus stress. Mild laxity appreciated with valgus stress that is slightly more than the contralateral side. Results & Data Vital Signs (Past 12 Hours) Vital Signs Temp Pulse Resp BP Pulse Ox O2 Del Method 07/29/24 14:38 36.7 C 65 18 138/70 95 Room Air 07/29/24 08:10 63 18 137/76 96 Room Air Diagnostic Findings No new imaging since last evening. CT scan and x-ray reviewed demonstrate lateral tibial plateau fracture with posterior joint depression (2) Fracture of left tibial plateau Encounter type: initial encounter Fracture type: closed Qualified Code(s): S82.142A - Displaced bicondylar fracture of left tibia, initial encounter for closed fracture
--- NOTE | 2024-07-30 05:55 | Electrocardiogram Report ---
Test Reason : Blood Pressure : */* mmHG Vent. Rate : 63 BPM Atrial Rate : 63 BPM P-R Int : 178 ms QRS Dur : 102 ms QT Int : 312 ms P-R-T Axes : -6 10 9 degrees QTcB Int : 319 ms Normal sinus rhythm Nonspecific ST and T wave abnormality Abnormal ECG When compared with ECG of 01-Mar-2016 18:57, Nonspecific T wave abnormality now evident in Anterolateral leads QT has shortened Confirmed by Mandeep Millan ([id number]) on 07/30/2024 5:55:40 AM Referred By: REFERRED SELF Confirmed By: Mandeep Millan
[2024-07-30 07:50] LABS: BUN Creatinine Ratio 17.4 (10-20); Calcium 9.2 mg/dl (8.6-10.3); Creatinine Clr Calc Pharmacy 48.8 ml/min; Potassium 3.8 mmol/L (3.5-5.1)
--- NOTE | 2024-07-30 16:01 | Hospitalist Progress Note ---
Date of Service July 30, 2024 Assessment & Plan (1) Left tibial fracture: Plan: Patient with mechanical fall 07/28 while on stool left knee XR/CT: acute proximal tibial fracture with comminution and depression of the lateral tibial plateau, fracture extension involving both medial and lateral tibial spines and lateral aspect of proximal tibial metadiaphysis, small-mod joint effusions/hemarthrosis - leukocytosis resolved w/o intervention - likely secondary to inflammation - Orthopedics consuted, Dr. Paulino - offered operative vs non-operative management - opted for non operative - remain nonweight bearing with immobilizer in place - recommend DVT proh --> i discussed Eliquis with patient today, she would like to talk to her family first before starting. Instructed to notify nursing to get in contact with me when a decision has been made. Vit D level low despite home PO therapy - increased to high dose while inpatient PT/OT - recommending rehab, case management following (2) Hyponatremia: Plan: Mild, appears chronic. 133 on admission - with slightly elevated Bun/Cr ratio suspect due to dehydration --> given 500cc fluids - Na improved to 134 (3) Hypertension: Plan: stable - Continue home HCTZ and lisinopril Plan Chronic stable diagnoses: continue home calcium and magnesium supplements VTE ppx: SCDs - awaiting response from patient to determine if she is agreeable to eliquis Dispo: continued inpatient stay Family updated at bedside 07/29 Admission and Anticipated Discharge Date Admission Date: July 28, 2024 Supervising Physician Co-Signing Physician Notes Attending Attestation - Chart reviewed, care plan d/w ELIZABETH Booker. I agree w/ the ramirez components of her documentation. Appreciate orthopedic assistance for her L tibial fracture. Patient has opted for non-operative Rx. Thus will be in knee immobilizer with non-weight bearing status for prolonged period of time. 25-OH Vit D level - 21.8; replace. DVT Proph - agree with Eliquis 2.5mg BID. Dispo planning. PT/OT. Nain Perales MD Subjective Patient seen lying in bed this afternoon. No family present at bedside. Discussed DVT proh with her - recommending Eliquis, she wants to discuss with her family first because her takes warfarin. pain is well controlled moving bowels Review of Systems 2 Review of Systems: All systems reviewed & are unremarkable except as noted in Subjective Physical Exam Physical Exam: General: NAD, VS as above Resp: normal respiratory effort, lungs clear to auscultation CV: RRR, no murmur, Abd: normal bowel sounds, soft,non tender, Extremities: left knee in immobilizer. Able to wiggle toes distally. No swelling on the right side. Neuro: A&O x3, Results & Data Results & Data Vital Signs (Past 12 Hours) Vital Signs Temp Pulse Resp BP Pulse Ox O2 Del Method 07/30/24 15:14 97.5 F L 79 18 149/85 H 97 Room Air 07/30/24 09:50 64 18 146/72 H 95 Room Air 07/30/24 07:40 98.1 F 64 18 155/73 H 95 Room Air Laboratory Results bmp, vit D reviewed PG Care Time/CCT Total # of Minutes Spent Total Time Spent with Patient: Total time spent is greater than 50% in coordination of care (as documented) at patient's floor/unit and/or counseling patient: Coding Level of Care Code 81883 SUB INP/OBS CARE 2/35MIN Diagnoses Left tibial fracture S82.202A Hyponatremia E87.1 Hypertension I10
[2024-07-31] MEDS: CHOLECALCIFEROL 125 MCG (5,000 UNITS) TAB PO SCH (08:51)
--- NOTE | 2024-07-31 10:42 | Hospitalist Progress Note ---
Date of Service July 31, 2024 Assessment & Plan (1) Left tibial fracture: Plan: Patient with mechanical fall 07/28 while on stool left knee XR/CT: acute proximal tibial fracture with comminution and depression of the lateral tibial plateau, fracture extension involving both medial and lateral tibial spines and lateral aspect of proximal tibial metadiaphysis, small-mod joint effusions/hemarthrosis - leukocytosis resolved w/o intervention - likely secondary to inflammation - Orthopedics consuted, Dr. Paulino - offered operative vs non-operative management - opted for non operative - remain nonweight bearing with immobilizer in place - recommend DVT proh -->Eliquis 2.5mg BID Vit D level low despite home PO therapy - increased to high dose while inpatient - does not think she has had DEXA scan in past, recommend outpatient PT/OT - recommending rehab, case management following (2) Hyponatremia: Plan: Mild, appears chronic. 133 on admission - with slightly elevated Bun/Cr ratio suspect due to dehydration --> given 500cc fluids - Na improved to 134 (3) Hypertension: Plan: stable - Continue home HCTZ and lisinopril Plan Chronic stable diagnoses: continue home calcium and magnesium supplements VTE ppx: Eliquis Dispo: continued inpatient stay Family updated at bedside 07/29 Admission and Anticipated Discharge Date Admission Date: July 28, 2024 Supervising Physician Co-Signing Physician Notes Attending Attestation - Chart reviewed, care plan d/w ELIZABETH Booker. I agree w/ the ramirez components of her documentation. Nain Perales MD Subjective Patient seen sitting up in the chair. Pain is well controlled, reporting some discomfort at times. Has been able to stand and pivot, but difficulty with the walker Wanting rehab placement in [facility] Review of Systems Review of Systems: All systems reviewed & are unremarkable except as noted in Subjective Physical Exam Physical Exam: General: NAD, VS as above Resp: normal respiratory effort, lungs clear to auscultation CV: RRR, no murmur, Abd: normal bowel sounds, soft,non tender, Extremities: left knee in hinge brace - locked. Able to wiggle toes distally. No pitting edema in lower extremities Neuro: A&O x3, Results & Data Results & Data Vital Signs (Past 12 Hours) Vital Signs Temp Pulse Resp BP Pulse Ox O2 Del Method 07/31/24 07:54 97.7 F 66 20 127/78 93 Room Air 07/30/24 23:57 98.1 F 68 17 115/66 94 Room Air PG Care Time/CCT Total # of Minutes Spent Total Time Spent with Patient: Total time spent is greater than 50% in coordination of care (as documented) at patient's floor/unit and/or counseling patient: Coding Level of Care Code 13877 SUB INP/OBS CARE 2/35MIN Diagnoses Left tibial fracture S82.202A Hyponatremia E87.1 Hypertension I10
[2024-07-31] MEDS: APIXABAN 2.5 MG TAB PO SCH (12:41)
--- NOTE | 2024-08-01 11:28 | Hospitalist Progress Note ---
Date of Service August 01, 2024 Assessment & Plan (1) Left tibial fracture: Plan: Patient with mechanical fall 07/28 while on stool left knee XR/CT: acute proximal tibial fracture with comminution and depression of the lateral tibial plateau, fracture extension involving both medial and lateral tibial spines and lateral aspect of proximal tibial metadiaphysis, small-mod joint effusions/hemarthrosis - leukocytosis resolved w/o intervention - likely secondary to inflammation - Orthopedics consulted, Dr. Paulino - offered operative vs non-operative management - opted for non operative - remain nonweight bearing with immobilizer in place - recommend DVT proh -->Eliquis 2.5mg BID - will need follow xrays first week of August Vit D level low (21.8) despite home PO therapy - increased to high dose while inpatient, can continued doubled home dose for next 3-4 weeks at discharge - does not think she has had DEXA scan in past, recommend outpatient PT/OT - recommending rehab, case management following. Plan for d/c to rehab 08/02 (2) Hyponatremia: Plan: Mild, appears chronic. 133 on admission - with slightly elevated Bun/Cr ratio suspect due to dehydration --> given 500cc fluids - Na improved to 134 (3) Hypertension: Plan: stable - Continue home HCTZ and lisinopril Plan Chronic stable diagnoses: continue home calcium and magnesium supplements VTE ppx: Eliquis Dispo: continued inpatient stay, discharge tomorrow Family updated at bedside 07/29 adnd 07/31 attempted to call son multiple times 08/01, busy signal each time Admission and Anticipated Discharge Date Admission Date: July 28, 2024 Supervising Physician Co-Signing Physician Notes Attending Attestation - Chart reviewed, care plan d/w ELIZABETH Booker. I agree w/ the ramirez components of her documentation. Likely d/c to rehab tomorrow. Nain Perales MD Subjective Patient seen lying in bed, no family at bedside pain is controlled. No acute complaints. plan for discharge to rehab tomorrow Review of Systems Review of Systems: All systems reviewed & are unremarkable except as noted in Subjective Physical Exam Physical Exam: General: NAD, VS as above Resp: normal respiratory effort, lungs clear to auscultation CV: RRR, no murmur, Abd: normal bowel sounds, soft,non tender, Extremities: left knee in hinge brace - locked. Able to wiggle toes distally. No pitting edema in lower extremities Neuro: A&O x3, Results & Data Results & Data Vital Signs (Past 12 Hours) Vital Signs Temp Pulse Resp BP Pulse Ox O2 Del Method 08/01/24 07:52 97.5 F L 71 18 135/70 97 Room Air PG Care Time/CCT Total # of Minutes Spent Total Time Spent with Patient: Total time spent is greater than 50% in coordination of care (as documented) at patient's floor/unit and/or counseling patient: Coding Level of Care Code 09204 SUB INP/OBS CARE 235MIN Diagnoses Left tibial fracture S82.202A Hyponatremia E87.1 Hypertension I10
--- NOTE | 2024-08-01 13:31 | Orthopedic Progress Note ---
Date of Service August 01, 2024 Assessment & Plan (1) Benign hypertension: (2) Fracture of left tibial plateau: Plan Ellen is a pleasant 84-year-old female who sustained a tibial plateau fracture that she opted to have managed nonoperatively. she is in a hinged knee brace which is locked in extension. she is non weightbearing Close radiographic follow up of the fracture will be required. if she stays at a rehab in [facility], I will see her back early the week of August for new XRs to ensure no displacement. If early discplacement of the fracture is noted, I may recommend operative management more strongly. if the fracture demonstrates stability, we may unlock the brace from 0-45 degrees at that time Should the patient go to rehab nearer her family in the [place] area, a Dr Ellis at the [facility] has been appraised of the patients situation and noted that he would follow her as an outpatient. Admission and Anticipated Discharge Date Admission Date: July 28, 2024 Subjective Patient seen lying in bed, no family at bedside pain is controlled. No acute complaints. Review of Systems Review of Systems: negative unless otherwise stated above Physical Exam Physical Exam: Tenderness palpation of the lateral joint line. Stable to varus stress. Mild laxity appreciated with valgus stress that is slightly more than the contralateral side. Results & Data Vital Signs (Past 12 Hours) Vital Signs Temp Pulse Resp BP Pulse Ox O2 Del Method 08/01/24 07:52 36.4 C L 71 18 135/70 97 Room Air (2) Fracture of left tibial plateau Encounter type: initial encounter Fracture type: closed Qualified Code(s): S82.142A - Displaced bicondylar fracture of left tibia, initial encounter for closed fracture
[2024-08-02 07:40] VITALS: BP 128/72; RESP 18; TEMP 97.5; O2SAT 93
--- NOTE | 2024-08-02 09:27 | Discharge Summary ---
Discharge Summary Date of Service August 02, 2024 Principal Dx & Hospital Course #1 = Principal Diagnosis (1) Left tibial fracture: Patient with mechanical fall 07/28 while on stool left knee XR/CT: acute proximal tibial fracture with comminution and depression of the lateral tibial plateau, fracture extension involving both medial and lateral tibial spines and lateral aspect of proximal tibial metadiaphysis, small-mod joint effusions/hemarthrosis - leukocytosis resolved w/o intervention - likely secondary to inflammation - Orthopedics consulted, Dr. Paulino - offered operative vs non-operative management - opted for non operative - remain nonweight bearing with immobilizer in place - recommend DVT proh -->Eliquis 2.5mg BID - will need follow xrays first week of August Vit D level low (21.8) despite home PO therapy - increased to high dose while inpatient, can continued doubled home dose for next 3-4 weeks at discharge - does not think she has had DEXA scan in past, recommend outpatient PT/OT - recommending rehab, case management following. Plan for d/c to rehab 08/02 (2) Hyponatremia: Mild, appears chronic. 133 on admission - with slightly elevated Bun/Cr ratio suspect due to dehydration --> given 500cc fluids - Na improved to 134 but then dropped to 128 on the day of discharge. Patient is asymptomatic. - Will hold hydrochlorothiazide and start sodium chloride 1gm for 7 days. 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 Son will transport Family updated at bedside 07/29 and 07/31, 08/02 attempted to call son multiple times 08/01, busy signal each time Admission HPI Per Admitting Provider Patient is an 84-year-old female with past medical history of hypertension. She presents today after twisting on her stool, falling, and hurting her left knee. She was cleaning out her cabinets, on a step stool, and her knee twisted and gave out. She denies dizziness, chest pain, dyspnea, prior to falling. Her knee pain is currently well-controlled. X-ray/ CT on admission showed acute proximal tibial fracture with communication and decompression of lateral tibial plateau. ER doctor stated that Dr. Paulino will perform surgery if patient wishes. She is to be nonweightbearing to the left leg and in a knee immobilizer. Patient denies dizziness, lightheadedness, dyspnea, chest pain, edema, numbness, tingling. She took all of her home medications this morning, she also takes a calcium and magnesium supplement at night. She wishes to be full code at this time. Admission Exam Per Admitting Provider Physical Exam: The patient is awake, alert and oriented 3, well developed and well nourished, normocephalic and atraumatic, in no acute distress. Non-toxic appearing. HEENT- EOMI, mucous membranes moist. Hearing grossly intact. Heart-normal S1 and S2. No murmurs, rubs or gallops. Lungs-clear bilaterally, no respiratory distress, no accessory muscle use. Abdomen-normal bowel sounds and soft. No ascites noted. Non-tender. Extremities- no clubbing, cyanosis, or edema. Knee immobilizer to left knee. Rheumatologic-normal range of motion. Psychiatric-normal affect. Discharge Exam GENERAL : No acute distress EYES: No icterus, gaze conjugate NOSE: No evidence of epistaxis MOUTH: No lesions or candidiasis NECK: Supple LUNGS: CTA B/L, no wheezes, rales or rhonchi HEART: Regular, rate controlled ABDOMEN: Soft, NT, ND, BS Present EXTREMITIES: No LE edema, pedal pulses intact NEURO: A&OX3 Discharge Plan Discharge Items Patient Disposition: Transfer Half-Way Fac Reason For Visit: LEFT TIBAL FX Discharge Diagnosis: left tibial fx Condition on Discharge: Good Activity: As commented below Activity Comment: left leg non weightbearing Weightbearing: Left non-weightbearing Non-emergency contact: Primary Care Provider and Specialist Call non-emergency contact if: you have any medication questions, your symptoms worsen, your pain is worsening and your temperature is above 101 Follow-up/Referrals: Celina Batres MD [Primary Care Provider] - (follow up within one week after discharge from rehab ) Joseph Paulnio DO [Surgeon] - (needs repeat xrays the first week of August ) Diet: Regular Addtl Attending Provider Instructions: Ms. Lerner, You were hospitalized after falling and breaking your tibia, you have decided to not have surgery. You are to remain non-weight bearing for 6-8 weeks. For this reason you are at higher risk for DVTs and have been started on Eliquis. You have a history of normocytic, normochromic anemia. Repeat labs on day of discharge revealed a stable, hemoglobin of 12.1 g/dl. Routine follow up is suggested with your primary care provider Per Dr. Joseph Paulino - you need follow up xrays the first week of August. His contact information is above, a follow up appointment can be arranged with him or orders to have the xrays done near rehab. Or with Dr. Ellis who is familiar with your case. Labs on the day of discharge also reveal a low sodium level. This can be because of the hydrochlorothiazide (water pill). You should hold this on discharge and get follow up labs in 1 week to rule out SIADH We will also start you on sodium chloride tablets for one week pending labs. Please report any increased nausea and vomiting, fatigue. confusion, instability, muscle weakness or spasm, or intractable headache. Please follow labs with your primary care provider You should also increase your vitamin D dosing, by taking two tablets per day. You should discuss a DEXA scan (screening for osteoperosis) with your PCP. Follow up with your PCP after discharge from rehab. ----- Here are some guidelines about taking Eliquis: Increased risk of blood clots if you stop taking Eliquis. Do not stop taking Eliquis without talking to your doctor.. Stopping Eliquis increases your risk of having a stroke. Increased risk of bleeding. Eliquis can cause bleeding which can be serious and may lead to . This is because Eliquis is a blood thinner medicine (anticoagulant) that lowers blood clotting. During treatment with Eliquis you are likely to bruise more easily, and it may take longer for bleeding to stop. * If you ever cannot get bleeding to stop please report to the ER * If you have a bruise that is large/painful or swollen you should also be seen by a medical provider Call your doctor or get medical help right away if you or your child develop any of these signs or symptoms of bleeding: unexpected bleeding or bleeding that lasts a long time, such as: * nose bleeds that happen often * unusual bleeding from the gums * bleeding that is severe or you cannot control * red, pink or brown urine * bright red or black stools (looks like tar) * cough up blood or blood clots * vomit blood or your vomit looks like coffee grounds If you have a fall and hit your head, please come to the ER and get checked out. Being on a blood thinner increases your risk of brain bleeding with falls. Avoid high risk activities, such as: * standing on tall ladders * riding motorcycles * anything where you are high risk for falls or trauma Avoid taking NSAIDs (pain medication) while you are taking a blood thinner. This includes: * Ibuprofen, Aleve Advil, Naproxen. * If you are ever unsure you can ask your doctor or pharmacist. * Tylenol is SAFE to take. If you have any new or worsening chest pain or shortness of breath please return to the ER. Pending Studies at Discharge: No Stand-Alone Forms: My [facility] Skilled Items Patient informed of condition?: Yes DNR: No Discharge Level of Care: Acute rehab Communicable Disease: No Discharge Prognosis: Stable Lines: None Urinary Catheter: No Medications and DC Order Prescriptions: New Caltrate 600-D Plus Minerals 600 mg calcium- 800 unit-50 mg Tablet 2 tab PO HS Qty: 60 0RF Eliquis 2.5 mg Tablet 2.5 mg PO BID Qty: 30 1RF sodium chloride 1,000 mg tablet,soluble 1,000 mg PO DAILY Qty: 7 0RF Continued lisinopril 40 mg tablet 40 mg PO DAILY Qty: 90 3RF Discontinued hydrochlorothiazide 25 mg tablet 25 mg PO QAM Rx Instructions: TAKE ONE (1) TABLET BY MOUTH IN THE MORNING WITH ORANGE JUICE. Discharge Orders: Discharge Order (Routine); Ordered 08/02/24 Ordered By: Kemar Bob Admission Data Admit Date/Time: 07/28/24 17:24 Attending Provider: Nain Perales Admit Provider: Nain Laurent Primary Care Provider: Celina Batres Providers: Nain Laurent; Joseph Paulino; [facility] Other Interventions: Discharge Summary Assessment (RN) Last Done: 08/02/24 11:47 Hospital Stay Data Consultations 07/28/24 17:17 ED Decision to Admit Stat 07/28/24 20:05 Consult Orthopedic Surgery Routine Procedures Performed Operation Date: 07/30/24 12:00 <No data on this case meets the specified criteria> Diagnostic Imagining Performed 07/28/24 14:49 CT knee LT wo con Stat TECHNIQUE: Multiple axial CT images of the left knee were obtained without IV contrast. A dose lowering technique was used consistent with the principals of PALOMA. FINDINGS: Confirmation of the acute proximal tibial fracture with comminuted component involving the lateral tibial plateau. Confirmation of the articular depression which measures approximately [address] There is fracture extension into the medial and lateral tibial spines. The articular surface of the medial tibial plateau is intact. There is vertical fracture extension into the proximal tibial metadiaphysis laterally, approximately 7 cm distal to the articular surface. There is no significant displacement or large intra-articular loose body. Mild tricompartmental osteoarthritis. Jjvvw-ht-joimyajj joint effusion/hemarthrosis. Anterior superficial venous varicosities. Arterial calcifications. Tendons, ligaments and menisci are not well evaluated by CT technique. IMPRESSION: 1. Confirmation of the acute proximal tibial fracture with comminution and depression of the lateral tibial plateau component of the fracture. 2. Fracture extension involving both the medial and lateral tibial spines and lateral aspect of the proximal tibial metadiaphysis. 3. Ninnx-es-mqfomoos joint effusion/hemarthrosis. ACT 112: Negative or not required by law. The above report was generated using voice recognition software. It may contain grammatical, syntax or spelling errors. Electronically signed by: Derek aHm M.D. 07/28/2024 3:47 PM Pending Results Patient Have Any Pending Studies at Discharge: No Discharge Instructions Given to Patient (Per Discharging Provider) Ms. Lerner, You were hospitalized after falling and breaking your tibia, you have decided to not have surgery. You are to remain non-weight bearing for 6-8 weeks. For this reason you are at higher risk for DVTs and have been started on Eliquis. You have a history of normocytic, normochromic anemia. Repeat labs on day of discharge revealed a stable, hemoglobin of 12.1 g/dl. Routine follow up is suggested with your primary care provider Per Dr. Joseph Paulino - you need follow up xrays the first week of August. His contact information is above, a follow up appointment can be arranged with him or orders to have the xrays done near rehab. Or with Dr. Ellis who is familiar with your case. Labs on the day of discharge also reveal a low sodium level. This can be because of the hydrochlorothiazide (water pill). You should hold this on discharge and get follow up labs in 1 week to rule out SIADH We will also start you on sodium chloride tablets for one week pending labs. Please report any increased nausea and vomiting, fatigue. confusion, instability, muscle weakness or spasm, or intractable headache. Please follow labs with your primary care provider You should also increase your vitamin D dosing, by taking two tablets per day. You should discuss a DEXA scan (screening for osteoperosis) with your PCP. Follow up with your PCP after discharge from rehab. ----- Here are some guidelines about taking Eliquis: Increased risk of blood clots if you stop taking Eliquis. Do not stop taking Eliquis without talking to your doctor.. Stopping Eliquis increases your risk of having a stroke. Increased risk of bleeding. Eliquis can cause bleeding which can be serious and may lead to . This is because Eliquis is a blood thinner medicine (anticoagulant) that lowers blood clotting. During treatment with Eliquis you are likely to bruise more easily, and it may take longer for bleeding to stop. * If you ever cannot get bleeding to stop please report to the ER * If you have a bruise that is large/painful or swollen you should also be seen by a medical provider Call your doctor or get medical help right away if you or your child develop any of these signs or symptoms of bleeding: unexpected bleeding or bleeding that lasts a long time, such as: * nose bleeds that happen often * unusual bleeding from the gums * bleeding that is severe or you cannot control * red, pink or brown urine * bright red or black stools (looks like tar) * cough up blood or blood clots * vomit blood or your vomit looks like coffee grounds If you have a fall and hit your head, please come to the ER and get checked out. Being on a blood thinner increases your risk of brain bleeding with falls. Avoid high risk activities, such as: * standing on tall ladders * riding motorcycles * anything where you are high risk for falls or trauma Avoid taking NSAIDs (pain medication) while you are taking a blood thinner. This includes: * Ibuprofen, Aleve Advil, Naproxen. * If you are ever unsure you can ask your doctor or pharmacist. * Tylenol is SAFE to take. If you have any new or worsening chest pain or shortness of breath please return to the ER. Supervising Physician Co-Signing Physician Notes Attending Attestation and Discharge Note: Pt seen/examined, chart reviewed, discharge care plan d/w ELIZABETH Bob. I agree w/ the ramirez components of his discharge documentation with the following addition - * pathological fracture of left tibial plateau due to age-related osteoporosis 84yo female with h/o HTN who presented after falling from a step stool at her home. Upon ER presentation found to have a left tibial plateau fracture. Seen by orthopedics - given the option of operative Rx vs nonoperative Rx. Patient discussed options with her family and ultimately opted for nonoperative Rx. She was placed in a hinged knee brace locked in extension and asked to maintain 100% non-weight bearing status to the LLE. She was initiated on Eliquis 2.5mg BID for DVT proph. 25-OH vit D level was 21.8; vit D supplementation was started. PT, OT evals were completed; rehab advised. Her son lives in the [place] area and she will travel to that region for rehab at a rehab facility ([facility]). Stay was complicated by hyponatremia. Presenting Na level was 133, falling to 128 on day of discharge. Suspect that her chronic HCTZ is the culprit for her hyponatremia. She was started on Salt tablets, HCTZ was stopped, and she will need a repeat BMP within 3 days of discharge to ensure stability. Discharge hemoglobin was 12.1. Discharge exam: gen - NAD, looks well mouth - MMM neck - no JVD heart - RRR, s1 s2, no murmur lungs - CTA b/l abd - soft NT ND BS+ ext - no edema, pulses 2+ b/l feet musculo - left knee in a large brace psych - a/o x 3 Patient will need f/u with an orthopedic surgeon in the [place] area within the first week of August 2024 for recheck of her left tibial fracture. 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
[2024-08-02 10:12] LABS: Hematocrit (blood only) 35.6 % (37.0-47.0); Hemoglobin 12.1 g/dl (12.0-16.0); Mean Corpuscular Hemoglobin 29.4 pg (25.0-34.0); Mean Corpuscular Volume 86.6 fL (80.0-100.0); Mean Platelet Volume 9.5 fL (9.4-12.4); Platelet Count 313 K/uL (130-400); RDW Coefficient of Variation 12.9 % (11.5-14.5); RDW Standard Deviation 40.6 fL (36.4-46.3); Red Blood Count 4.11 M/uL (4.20-5.40); White Blood Count 9.03 K/ul (4.8-10.8)
[2024-08-02 10:30] LABS: BUN Creatinine Ratio 22.4 (10-20); Calcium 9.2 mg/dl (8.6-10.3); Creatinine Clr Calc Pharmacy 39.2 ml/min; Potassium 3.7 mmol/L (3.5-5.1)
[2024-08-02 10:54] VITALS: PULSE 65
--- NOTE | 2024-08-04 15:10 | Coding Query ---
To promote full compliance with coding requirements relating to patient care, physician participation is requested in all cases of rand butter uncertainty. Please assist us with the question(s) below: 08/01 pn-Vit D level low (21.8) despite home PO therapy - increased to high dose while inpatient, can continued doubled home dose for next 3-4 weeks at discharge - does not think she has had DEXA scan in past, recommend outpatient Coding Question(s): It was noted throughout the record that the patient has/is suspected to have osteoporosis. According to coding guidelines "a code for osteoporotic fracture, and not a traumatic fracture, should be used for any patient with known osteoporosis who suffers a fracture, even if the patient had a minor fall or trauma, if that fall or trauma would not usually break a normal, healthy bone." Please indicate below the type of fracture: Physician's Response(s): ( x ) Possible Osteoporotic fracture of (rand butter indicate site of fracture) ( ) Traumatic fracture of (rand butter indicate site of fracture) ( ) Other, please specify Aparna Barrientos, BECKY, [facility]
== END 2024-08-02 11:47 | DRG 543 ==
LOC: SUATTDRO → ED 13:19 → SUATTDRO 17:24 → 3N 17:24